=== PATIENT | female | born 1980 | race Two or more races ===

== ENCOUNTER → 2024-12-02 | Outpatient (CLI) | payer MEDICAID, SELFPAY ==
[2024-12-01 14:03] LABS: HCG Qualitative,Urine Negative
--- NOTE | 2024-12-02 09:45 | XR_ITS ---
Examination: MRI abdomen , with intravenous contrast. Exam date and time: December 02, 2024, 1032 hrs. Indications: Intermittent abdominal pain 2 years, CT abdomen pelvis October 25, 2022 multiple liver lesions, the largest 4.2 cm, differential including focal nodular hyperplasia or hepatic adenomas Technique: Multiple axial, sagittal and coronal images of the abdomen have been obtained with the Siemens high-resolution 1.5 Dot MRI scanner. Axial, sagittal and coronal images are obtained post intravenous injection 19 cc gadolinium. Findings: Homogeneous enhancing lesions right lobe the liver, 5.5 cm, 1.1 cm, 1.9 cm, 0.9 cm Spleen is not enlarged No pancreatic mass No hydronephrosis No ascites Aorta normal size with no lymphadenopathy Impression: Homogeneously enhancing liver lesions, differential would include hepatic adenomas, focal nodular hyperplasia Recommend 6 month follow-up MRI abdomen with contrast to document stability of these lesions
== END | disposition home or self-care (01) ==
LOC: SMRI 09:29
PROVIDERS: PCP Nurse Practitioner Family; Referring Provider Nurse Practitioner Family; Visit Provider Nurse Practitioner Family
DX: K76.9 Liver disease, unspecified (principal); Z32.00 Encounter for pregnancy test, result unknown
CPT/HCPCS: 74182; 81025; A9577